=== PATIENT | male | born 1935 | race Caucasian/White ===

== ENCOUNTER → 2016-09-12 | Outpatient (CLI) | payer MEDICARE, BC | LOC: GMAJ 10:40 | PROVIDERS: ATTEND Family Medicine | DX: N40.1 Benign prostatic hyperplasia with lower urinary tract symptoms (principal) ==

== ENCOUNTER → 2016-09-20 | Outpatient (CLI) | payer MEDICARE, BC ==
--- NOTE | 2016-09-26 00:32 | US ---
EXAM DESCRIPTION: Abdomen, complete CLINICAL HISTORY: 81 years Male, ABD PAIN COMPARISON: September 17, 2009 TECHNIQUE: Grayscale imaging of the entire abdomen was performed. Static images were saved to the patient's medical record. FINDINGS: Gallbladder is visualized. No evidence of echogenic stone. The liver measures 14.2 cm in diameter. No evidence of mass or intrahepatic biliary duct dilatation. The common bile duct measures 5 mm in diameter. Bilateral kidneys demonstrate no evidence of mass or obstruction. Small bilateral single exophytic renal cyst noted. The abdominal aorta tapers normally. The spleen is unremarkable. The pancreas is unremarkable. IMPRESSION: Today's exam demonstrates no findings to account for patient's abdominal pain. The gallbladder is unremarkable. No evidence of hydronephrosis. Electronically signed by: Angel King MD 09/20/2016 3:00 PM DIRECTOR OF MARKETING COMMUNICATIONS
== END | disposition home or self-care (01) ==
LOC: US 07:52
PROVIDERS: ATTEND Family Medicine
DX: R10.11 Right upper quadrant pain (principal)

== ENCOUNTER 2017-01-03 06:59 | Inpatient (IN) | payer MEDICARE, BC ==
[2017-01-03] MEDS ORDERED: SODIUM CHLORIDE 0.9% 1000ML 1,000 ML IVS ONE (07:19)
[2017-01-03] MEDS ORDERED: KETOROLAC TROMETHAMINE INJ 30 MG/ML VIAL IV ONE (07:19)
[2017-01-03] MEDS ORDERED: ONDANSETRON ODT 8 MG TAB SL SCH (07:30)
--- NOTE | 2017-01-03 07:42 | RAD ---
Chest and abdomen three views total INDICATION: Abdominal and testicular pain acute IMPRESSION: Normal heart size. There are multiple nonacute-appearing posterior right rib fractures mostly healed. No pleural effusion or pneumothorax. Minimal elevation right hemidiaphragm. No subdiaphragmatic free air. No acute chest process. The abdominal bowel gas pattern is unremarkable. No evidence of obstruction. Slightly prominent stool in the right colon. Mild degenerative changes lumbar spine. Electronically signed by: Prashant Dumont MD 01/03/2017 7:43 AM CDT
[2017-01-03] MEDS ORDERED: CIPROFLOXACIN 500 MG TAB PO ONE (08:06)
--- NOTE | 2017-01-03 08:59 | US ---
EXAM DESCRIPTION: Testicular CLINICAL HISTORY: 81 years,Male,left testicle and abd pain 12 hours COMPARISON: None TECHNIQUE: Multiple sonographic images were obtained of the scrotum with duplex Doppler of the testicles. FINDINGS: Right testicle demonstrates normal echotexture. No masses, cysts, or calcifications. Left testicle demonstrates normal echotexture. No masses, cysts, or calcifications. Right epididymis is is slightly enlarged at the head with multiple small cysts. The head is 2 x 1 cmThe left epididymis is thickened, heterogenous, as multiple near cystic areas in the head. The head is 2.2 x 1.8 cm. And the body is at least 1.2 cm in thickness. And a small amount of extratesticular fluid on the left with thin septations. The right testicle was 4.7 cm in length by 2.7 x 2.3cm. The left testicle is 4.8 cm in length by 3.3 x 3.9cm. Both testicles demonstrate normal arterial and venous waveforms. IMPRESSION: Left epididymis is rather enlarged and thickened with small amount of extratesticular fluid consistent with epididymitis. And a few spermatoceles/epididymal head cyst in the right Electronically signed by: Ricci Bray MD 01/03/2017 8:59 AM CDT
--- NOTE | 2017-01-03 10:23 | CT ---
EXAM DESCRIPTION: Abdoment/Pelvis w/o Contrast CLINICAL HISTORY: abd pain and left testicle pain COMPARISON: Testicular ultrasound from the same day. TECHNIQUE: CT of the abdomen and pelvis was performed without contrast. Multiple axial images and multiplanar reconstructions were generated. This exam was performed according to our department minimal dose optimization program which includes automated exposure control, adjustment of mA and/or kV according to patient size and/or use of iterative reconstructed techniques. FINDINGS: Lung bases are without acute findings. Degenerative change within the lumbar spine from L3-4 through L5-S1. The noncontrasted spleen, pancreas, liver, gallbladder, bilateral adrenal glands are unremarkable. Exophytic left midpole cyst. The left kidney is otherwise unremarkable. The right lower pole renal stone measures 5.6 mm. No evidence of obstruction. Urinary bladder is unremarkable. The prostate is enlarged measuring 5.2 cm. There is edema within the region of the left testicle. The abdominal aorta is not aneurysmal. Small bowel is unremarkable. Diverticulosis of the colon noted. IMPRESSION: 1. Please refer to the ultrasound report from the same day regarding the findings of epididymitis. 2. 5.6 mm right lower pole renal stone noted. Evidence of obstruction. 3. Diverticulosis of the colon noted. 4. Degenerative change of lower lumbar spine. Electronically signed by: Angel King MD 01/03/2017 10:23 AM CDT
[2017-01-03] MEDS ORDERED: cefTRIAXone SODIUM 1 GM in SODIUM CHL 0.9% 50ML MIN-BAG+ 50 ML IVPB ONE (10:50)
[2017-01-03] MEDS ORDERED: cefTRIAXone SODIUM 1 GM VIAL ONE ×2 (11:01→19:35)
[2017-01-03] MEDS ORDERED: SODIUM CHL 0.9% 50ML MIN-BAG+ 50 ML IVPB ONE ×2 (11:01→19:35)
--- NOTE | 2017-01-03 11:04 | ED.PDOC ---
History of Present Illness - General Chief Complaint: Problem Stated Complaint: left testicular pain radiating to abdomen Time Seen by Provider: 01/03/17 07:19 Source: patient Exam Limitations: no limitations - History of Present Illness Initial Comments: The patient is a 81-year-old male presenting to the emergency room secondary to abdominal and inguinal pain down to the testicle on the left starting early last night. Pain is very severe. He does have some nausea. He is having urinary frequency and dysuria. He has exquisite tenderness to palpation of the left testicle and spermatic cord. He does have some mild guarding on palpation of the left lower quadrant. Questionable fevers at home. He is feeling weak. He does appear to be in significant distres. Timing/Duration: 24 hours Severity: severe Improving Factors: nothing Worsening Factors: movement Associated Symptoms: loss of appetite, malaise, nausea/vomiting, weakness Allergies/Adverse Reactions: Allergies NO KNOWN ALLERGY Allergy (Verified 01/03/17 07:14) Review of Systems - Review of Systems Constitutional: States: fever, malaise, weakness EENTM: States: no symptoms reported Respiratory: States: no symptoms reported Cardiology: States: no symptoms reported Gastrointestinal/Abdominal: States: abdominal pain, nausea Genitourinary: States: dysuria, frequency, pain Musculoskeletal: States: no symptoms reported Skin: States: no symptoms reported Neurological: States: no symptoms reported Endocrine: States: no symptoms reported All other Systems: No Change from Baseline Past Medical History (General) - Patient Medical History Hx Seizures: No Hx Stroke: No Hx of COPD: No Hx Cardiac Disorders: No Hx Pacemaker: No Hx Hypertension: Yes Hx Diabetes: No Hx Renal Disease: No - kidney stones Hx MRSA: Yes - Buttock 2008 MRSA Source:: Wound Surgical History: no surgical history Family Medical History - Family History Mother Family History: Unknown Physical Exam - Physical Exam General Appearance: Alert, Obvious distress Eye Exam: bilateral normal Ears, Nose, Throat: hearing grossly normal, normal ENT inspection, normal pharynx Neck: non-tender, full range of motion, supple Respiratory: chest non-tender, lungs clear, normal breath sounds, no respiratory distress, no accessory muscle use Cardiovascular/Chest: normal peripheral pulses, regular rate, rhythm, no edema Peripheral Pulses: radial,right: 2+, radial,left: 2+, dorsalis pedis,right: 2+, dorsalis pedis,left: 2+, posterior tibialis,right: 2+, posterior tibialis,left: 2+ Gastrointestinal/Abdominal: non tender, soft Rectal Exam: deferred, other - testicular exam shows mild swelling of the left testicle and significant tenderness to palpation along with tenderness of the spermatic cord Back Exam: normal inspection, no CVA tenderness, no vertebral tenderness Extremity: normal range of motion, non-tender, normal inspection, no pedal edema , normal capillary refill Neurologic: alert, normal mood/affect, oriented x 3 Skin Exam: normal color Comments: Vital Signs - 24 hr 01/03/17 07:10 Temperature 99.9 F H Pulse Rate [ 66 apical] Respiratory 20 Rate Blood Pressure 160/80 [right brachial ] O2 Sat by Pulse 95 Oximetry Progress - Progress Progress: 01/03/17 11:06 the patient is a 81-year-old male with significant left-sided epididymitis and a urinary tract infection with severe associated pain. The patient will be admitted for IV antibiotic therapy given the severity of his symptoms. Blood culture has been performed. There is some concern for septicemia with this patient. Monitor closely. IV pain medications have been required So far. Rocephin and ciprofloxacin have been given here in the emergency room. - Results/Orders Results/Orders: Laboratory Tests 01/03/17 01/03/17 01/03/17 07:15 07:20 07:20 WBC 13.2 H RBC 4.56 L Hgb 13.9 L Hct 41.6 L MCV 91.2 MCH 30.4 MCHC 33.4 RDW 13.3 Plt Count 155 MPV 8.8 Absolute Neuts (auto) 11.50 H Absolute Lymphs (auto) 0.70 L Absolute Monos (auto) 1.00 H Absolute Eos (auto) 0.00 Absolute Basos (auto) 0.10 Neutrophils % 86.7 H Lymphocytes % 5.3 L Monocytes % 7.4 Eosinophils % 0.0 L Basophils % 0.6 PT INR PTT (SP) D-Dimer, Quantitative Sodium 135 Potassium 4.4 Chloride 102 Carbon Dioxide 26 Anion Gap 11.4 L BUN 22 H Creatinine 1.40 H BUN/Creatinine Ratio 15.7 Random Glucose 140 H Serum Osmolality 275.7 Lactic Acid Calcium 8.7 Total Bilirubin 1.7 H AST 37 ALT 23 Alkaline Phosphatase 47 Creatine Kinase 27 L CK-MB (CK-2) 0.4 CK-MB (CK-2) % Not Reportable Troponin I < 0.02 B-Natriuretic Peptide 159.0 H Serum Total Protein 6.8 Albumin 3.7 Globulin 3.1 Albumin/Globulin Ratio 1.2 Amylase 64 Lipase 20 L Urine Color Yellow Urine Appearance Sl cloudy Urine pH 6.0 Ur Specific Brooks 1.020 Urine Protein 30 Urine Glucose (UA) Negative Urine Ketones Trace Urine Blood Negative Urine Nitrite Positive H Urine Bilirubin Negative Urine Urobilinogen 1.0 Ur Leukocyte Esterase Small H Urine RBC 0 Urine WBC >50 H Ur Epithelial Cells 1-3 Urine Bacteria 4+ H 01/03/17 01/03/17 07:20 07:40 WBC RBC Hgb Hct MCV MCH MCHC RDW Plt Count MPV Absolute Neuts (auto) Absolute Lymphs (auto) Absolute Monos (auto) Absolute Eos (auto) Absolute Basos (auto) Neutrophils % Lymphocytes % Monocytes % Eosinophils % Basophils % PT 12.5 INR 1.110 PTT (SP) 27.6 D-Dimer, Quantitative 282 H* Sodium Potassium Chloride Carbon Dioxide Anion Gap BUN Creatinine BUN/Creatinine Ratio Random Glucose Serum Osmolality Lactic Acid 1.0 Calcium Total Bilirubin AST ALT Alkaline Phosphatase Creatine Kinase CK-MB (CK-2) CK-MB (CK-2) % Troponin I B-Natriuretic Peptide Serum Total Protein Albumin Globulin Albumin/Globulin Ratio Amylase Lipase Urine Color Urine Appearance Urine pH Ur Specific Brooks Urine Protein Urine Glucose (UA) Urine Ketones Urine Blood Urine Nitrite Urine Bilirubin Urine Urobilinogen Ur Leukocyte Esterase Urine RBC Urine WBC Ur Epithelial Cells Urine Bacteria urine and blood cultures are pending. Ultrasound of the left testicle shows epididymitis. Normal blood flow. CT scan of the abdomen and pelvis shows no other acute pathology. Departure - Departure Clinical Impression: Epididymitis, Cystitis, Uncontrolled pain Disposition: Admit Patient Condition: Fair Departure Forms: ED Discharge - Pt. Copy, Patient Portal Self Enrollment Instructions: DI for Abdominal Pain-Adult Referrals: Perez Madrigal MD [Primary Care Provider] - 1-2 Weeks Decision To Admit - Decistion To Admit Decision to Admit Reason: Medical Nature Decision to Admit Date: 01/03/17 Decision to Admit Time: 11:08
--- NOTE | 2017-01-03 13:43 | HP ---
SUPERVISING PHYSICIAN: Perez Madrigal M.D. CHIEF COMPLAINT: Abdominal pain and left testicular pain. HISTORY OF PRESENT ILLNESS: This is a 81 year-old male patient who had some left testicular pain that started at about 8:00 the night prior to his admission. He also had some diffuse abdominal pain. About a month ago, he saw Dr. Madrigal in clinic and he had had some acid reflux. Dr. Madrigal gave him some Protonix and he has had no problems with his abdominal pain since that time. He did have some diffuse abdominal pain but he said it was somewhat different than what he saw Dr. Madrigal for a month ago. He also thinks that he may have had a urinary tract infection for about a week or so, but he had not gone in to see about it. In the Emergency Room, his electrolytes were basically within normal limits but his BUN was 22 and creatinine was 1.4. Glucose 140. Lactic acid was 1, bilirubin was a little high at 1.7. BNP was 159. WBCs were 13.2 with a left shift and hemoglobin was 13.9 and hematocrit 41.6. His urine showed positive nitrites, small amount of leukocyte esterase and greater than 50 WBCs and urine bacteria was 4+. Chest and abdominal x-ray showed normal heart size with no pleural effusion or pneumothorax. The abdominal bowel gas pattern was unremarkable with slightly prominent stool in the right colon. Abdominal/pelvic CT per radiology interpretation showed a 5.6 mm right lower pole renal stone that was noted with evidence of obstruction as well as diverticulitis of the colon and degenerative changes of the lumbar spine. His testicular ultrasound showed left epididymis is rather enlarged and thickened with small amount of extratesticular fluid consistent with epididymitis. The right testicle demonstrated normal echotexture. I was called for admission to the hospital. PAST MEDICAL HISTORY: 1. Benign prostatic hypertrophy. 2. Gastroesophageal reflux disease. 3. Hyperlipidemia. 4. Hypertension. 5. Colonic polyps. 6. Degenerative disc disease. PAST SURGICAL HISTORY: 1. Cyst removal from his neck. CURRENT MEDICATIONS: ALLERGIES: NO KNOWN DRUG ALLERGIES. FAMILY HISTORY: Father from congestive heart failure. Mother from an unspecified cancer. SOCIAL HISTORY: He is retired. He is . He has 3 children. He quit smoking and quit using smokeless tobacco in 1998. He denies any ETOH or illicit drug use. CODE STATUS: DO NOT RESUSCITATE. REVIEW OF SYSTEMS: Negative except as per the history of present illness. PHYSICAL EXAMINATION: VITAL SIGNS: Temperature 100.2, heart rate 60, blood pressure 165/66, respiratory rate 18, O2 sat 94% on room air. GENERAL: This is a 81 year-old male patient who is lying in his hospital bed. He is in no acute distress. HEENT: Normocephalic and atraumatic. Pupils are equal and reactive. Oropharynx is clear. He has poor dentition. NECK: Supple without mass. CHEST: Clear to auscultation bilaterally. There is equal rise and fall of the chest with inspiration and expiration. CARDIOVASCULAR: Regular rate and rhythm. ABDOMEN: Soft, nondistended. Mildly tender diffusely. There is no rebound tenderness or guarding. He is slightly more tender in the suprapubic area. GENITOURINARY: The left testicle is slightly more edematous than the right. There is tenderness with palpation to the testicle itself as well as the spermatic cord. EXTREMITIES: No cyanosis, clubbing or edema. NEUROLOGIC: He is awake, alert and oriented times three. LABORATORY: Labs and films are as per the History of Present Illness. ASSESSMENT: 1. Epididymitis of the left testicle. 2. Urinary tract infection. 3. 5.6 non obstructing renal stone. 4. Leukocytosis with a left shift most likely secondary to number 1 number 2. 5. Renal insufficiency with creatinine of 1.4. 6. Constipation. 7. Abdominal pain. 8. Hypertension. 9. Gastroesophageal reflux disease. 10. Benign prostatic hypertrophy. 11. Hyperlipidemia. 12. Degenerative disc disease. PLAN: We will admit the patient to the hospital. He has received some fluids in the Emergency Room as well as a gram of Rocephin. I will continue the Rocephin every 12 hours. I have added Protonix for ulcer prophylaxis as well as Lovenox for DVT prophylaxis. We will need to elevated his testicles as well as give him comfort measures such as ice or warm moist compresses, whichever the patient prefers. He will need a referral to Urology for the epididymitis as well as a workup for the renal stone. I will also give him pain medications. I will hold off on any NSAIDs due to his renal insufficiency. I have repeated his lab for in the morning. Will monitor his cultures as they become available. Dr. Madrigal is the collaborating physician available for consultation. #[id number] [facility] HEALTHMyriam
[2017-01-03] MEDS ORDERED: SODIUM CHLORIDE 0.9% (FLUSH) 10 ML SYG IV PRN (16:25)
[2017-01-03] MEDS ORDERED: ENOXAPARIN SODIUM 40 MG/0.4 ML SYG SUBCU SCH (16:30)
[2017-01-03] MEDS ORDERED: IV SET AND CAP CHANGE INJ INJ SCH (16:30)
--- NOTE | 2017-01-03 16:37 | PCM.CORE ---
Physician DVT/VTE - Prophylaxis Currently: Patient already on anticoagulation therapy - Nurse DVT Assessment & Total Each Risk Factor Represents 3 Points: Age over 75 years Each Risk Factor Represents 2 Points: Age 60-74 DVT Assessment Score: 5 - 5 or more Very High Risk Treatments: Early Ambulation *, Sequential Compression Device
[2017-01-03] MEDS: PANTOPRAZOLE SODIUM IV 40 MG VIAL IV SCH (16:58)
[2017-01-03] MEDS: cefTRIAXone SODIUM 1 GM in SODIUM CHL 0.9% 50ML MIN-BAG+ 50 ML IVPB SCH (23:54)
[2017-01-04] MEDS ORDERED: SODIUM CHL 0.9% 50ML MIN-BAG+ 50 ML IVPB ONE ×2 (07:01→20:31)
[2017-01-04] MEDS ORDERED: PRAVASTATIN SODIUM 20 MG TAB ONE (07:01)
[2017-01-04] MEDS ORDERED: ENOXAPARIN SODIUM 40 MG/0.4 ML SYG SUBCU ONE (07:02)
[2017-01-04] MEDS ORDERED: cefTRIAXone SODIUM 1 GM VIAL ONE ×2 (07:02→20:32)
[2017-01-04] MEDS: HYDROcodone 5MG/APAP 325MG 1 EA TAB PO PRN ×2 (08:00→17:16)
[2017-01-04] MEDS: FINASTERIDE 5 MG TAB PO SCH (08:39)
[2017-01-04] MEDS: METOPROLOL SUCCINATE XL 25 MG TAB PO SCH (08:39)
[2017-01-04] MEDS: SODIUM CHLORIDE 0.9% (FLUSH) 10 ML SYG IV SCH ×2 (08:49→20:39)
[2017-01-04] MEDS: cefTRIAXone SODIUM 1 GM in SODIUM CHL 0.9% 50ML MIN-BAG+ 50 ML IVPB SCH ×2 (11:02→22:31)
--- NOTE | 2017-01-04 13:11 | PN ---
SUPERVISING PHYSICIAN: David Dale MD DATE: 01/04/17 SUBJECTIVE: The patient is sitting up in his hospital bed watching television. His is at the bedside. He has no complaints of shortness of breath, nausea, vomiting, diarrhea or abdominal pain. He said he has had very little scrotal pain overnight. He did have a headache overnight, but received some Tylenol for that and that improved. He did say he had ice on his testicles several times overnight and that did help. OBJECTIVE: VITAL SIGNS: T-max 24 hours 100.4. Pulse 66. Blood pressure 131/ 63. Respiratory rate 18. O2 saturation 93% on room air. LUNGS: Clear to auscultation bilaterally. CARDIAC: Regular rate and rhythm. ABDOMEN: Soft, nontender, nondistended. Bowel sounds are positive. EXTREMITIES: No cyanosis, clubbing or edema. GENITOURINARY: Left testicle is slightly edematous, but much less than yesterday. NEUROLOGIC: Awake, alert and oriented times three. LABORATORY: WBC slightly improved to 10.4, but neutrophils still elevated at 82.2. Hemoglobin 11.8, hematocrit 35.4. Electrolytes are basically within normal limits. BUN 28, creatinine improved to 1.30. Calcium 8. Preliminary urine culture shows gram negative rods. All other labs and films have been reviewed via the EMR. ASSESSMENT: 1. Epididymitis of the left testicle. 2. Urinary tract infection. 3. 5.6 non obstructing renal stone. 4. Leukocytosis with a left shift most likely secondary to number 1 number 2. 5. Renal insufficiency with creatinine of 1.4. 6. Constipation. 7. Abdominal pain. 8. Hypertension. 9. Gastroesophageal reflux disease. 10. Benign prostatic hypertrophy. 11. Hyperlipidemia. 12. Degenerative disc disease. PLAN: We will continue present supportive care. He will continue on his Rocephin antibiotics until his urine culture is available tomorrow at which time he will be discharged on the appropriate antibiotics. He is much better today. There is minimal swelling to the left testicle as it has improved since yesterday. I will repeat a CBC and CMP in the morning. He will need a followup with Dr. Madrigal on discharge as well as may need a Urology consultation due to the epididymitis as well as the kidney stone. We will continue to monitor the patient closely and followup as needed. #[id number] and [id number] [facility]
[2017-01-04] MEDS: PANTOPRAZOLE SODIUM IV 40 MG VIAL IV SCH (16:10)
[2017-01-04] MEDS: ONDANSETRON INJ 4 MG/2 ML VIAL IV PRN (17:16)
[2017-01-04] MEDS ORDERED: PRAVASTATIN SODIUM 20 MG TAB PO SCH (21:00)
[2017-01-04] MEDS ORDERED: ENOXAPARIN SODIUM 40 MG/0.4 ML SYG SUBCU SCH (21:00)
[2017-01-05] MEDS ORDERED: ACETAMINOPHEN 325 MG TAB PO PRN (01:27)
[2017-01-05] MEDS ORDERED: SODIUM CHL 0.9% 50ML MIN-BAG+ 0 ML IVPB ONE (07:23)
[2017-01-05] MEDS ORDERED: cefTRIAXone SODIUM 1 GM VIAL ONE (07:24)
[2017-01-05] MEDS: ONDANSETRON INJ 4 MG/2 ML VIAL IV PRN (07:36)
[2017-01-05] MEDS: FINASTERIDE 5 MG TAB PO SCH (09:18)
[2017-01-05] MEDS: SODIUM CHLORIDE 0.9% (FLUSH) 10 ML SYG IV SCH (09:18)
[2017-01-05] MEDS: METOPROLOL SUCCINATE XL 25 MG TAB PO SCH (09:18)
[2017-01-05 09:47] VITALS: BP 138/75; TEMP 99.8; O2SAT 91
--- NOTE | 2017-01-09 08:10 | DS ---
SUPERVISING PHYSICIAN: Perez Madrigal MD DISCHARGE DIAGNOSIS: 1. Epididymitis of the left testicle. 2. Urinary tract infection with final culture results showing youssef sensitive Escherichia 3. Leukocytosis with a left shift most likely secondary to #1 and #2. 4. Renal insufficiency with creatinine of 1.4, improved after IV fluids. 5. Constipation. 6. Abdominal pain, secondary to #1 and #2 as well as #5. 7. Hypertension. 8. Gastroesophageal reflux disease. 9. Benign prostatic hypertrophy. 10. Hyperlipidemia. 11. Degenerative disc disease. 12. Nonobstructing 5.6 mm renal stone. HISTORY OF PRESENT ILLNESS: Mr. Aguiar is a 81-year-old male patient who had some left testicular pain that started at about 8:00 the night prior to his admission. He also had some diffuse abdominal pain. About a month ago, he saw Dr. Madrigal in clinic and he had had some acid reflux. Dr. Madrigal gave him some Protonix and he has had no problems with his abdominal pain since that time. He did have some diffuse abdominal pain, but he said it was somewhat different than what he saw Dr. Madrigal for a month previous. He also thinks that he may have had a urinary tract infection for about a week or so, but he had not gone in to see about it. In the Emergency Room, his electrolytes were basically within normal limits, but his BUN was 22 and creatinine was 1.4. Lactic acid was 1. White count was slightly elevated at 13.2 with a left shift. His initial urinalysis showed positive nitrites, small amount of leukocyte esterase and greater than 50 WBCs and urine bacteria was 4+. Chest and abdominal x-ray showed normal heart size with no pleural effusion or pneumothorax. The abdominal bowel gas pattern was unremarkable with slightly prominent stool in the right colon. Abdominopelvic CT per radiology interpretation showed a 5.6 mm right lower pole renal stone that was noted without evidence of obstruction as well as diverticulitis of the colon and degenerative changes of the lumbar spine. His testicular ultrasound showed left epididymis is rather enlarged and thickened with small amount of extratesticular fluid consistent with epididymitis. The right testicle demonstrated normal echotexture. He was then admitted to the Medical/Surgical Floor for continuation and initiation of antibiotic therapy. LABORATORY: CBC on admission showed leukocytosis of 13.2 with hemoglobin 13.9, hematocrit 41.6, platelet count 155,000. Differential did show a left shift. He was initiated on antibiotic therapy and continued. At discharge, his white count had normalized to 6.5, hemoglobin stabilized at 11.4, hematocrit 34.1 with a left shift continued, although showing improvement. Coagulation studies showed PT 12.5, INR 1.1, PT-T 27.6. D-dimer 282. Chemistries on admission showed normal electrolytes as well as discharge. Initial BUN was 22. At discharge, it as 20. Creatinine was initially 1.4, after IV fluids at discharge it was 1.28. Liver functions initially showed just a slightly elevated bilirubin of 1.7, however, this resolved after treatment and was normalized at discharge. He had troponin that was less than 0.04. Urinalysis showed positive nitrites with small amount of leukocyte esterase with microscopic revealing 0 RBCs, greater than 50 WBCs with 1 to 3 epithelials, 4+ bacteria. MICROBIOLOGY: He had two sets of blood cultures that remained negative after four days. MRSA surveillance culture showed no growth after 72 hours. Final urine culture was youssef sensitive showing Escherichia coli. RADIOLOGY: Abdominal x-ray in the Emergency Department per radiologic interpretation there was note of multiple nonacute appearing rib fractures, most likely healed. No pleural effusions or pneumoperitoneum. There was no acute chest process noted. Bowel gas pattern was unremarkable with no evidence of obstruction, slightly prominent stool in the right colon with mild degenerative changes noted within the lumbar spine. A testicular ultrasound prior to admission per radiologic interpretation showed findings of the left testicle consistent with epididymitis and the right being within normal limits. Please see that report for full details. He also had abdominopelvic CT without contrast and per radiologic interpretation, there was note of a 5.6 mm lower pole renal stone without evidence of obstruction. Also of note was diverticulosis and lumbar spine degenerative changes. Please see that report for full details. HOSPITAL COURSE: Mr. Aguiar was admitted as noted in the history of present illness with a urinary tract infection and acute epididymitis. He was initiated on antibiotics to include Rocephin. He was provided pain control and nausea medicine as needed. He clinically improved with IV fluids and antibiotic therapy and was felt well enough clinically to be discharged on date of discharge to have continued followup with primary care physician and urology. PLAN: The patient was discharged on 01/05/17 with instructions to have close clinical followup with Dr. Madrigal as scheduled on 01/12/17 at 1500. He was to resume his home medications as instructed and to start taking new prescriptions as directed. When possible, apply cold packs to the groin to decrease inflammation and use ibuprofen for pain control if not relieved with Tylenol No. 3. He was instructed to return to the hospital should he have no improvement in his symptoms or any other concerning symptoms. At discharge, antibiotic therapy was continued with Levaquin 500 mg, #10, and he was given codeine No. 3 300 mg/30 mg 1 tablet q.4h., #15, for pain control if not controlled by Aleve. DIET AT DISCHARGE: Resume regular diet. ACTIVITY: As tolerated. CONDITION AT DISCHARGE: Stable and improved. #[id number] [facility]
== END 2017-01-05 10:20 | disposition home or self-care (01) | DRG 728 ==
LOC: ER 06:59 → MS 13:00
PROVIDERS: ADMIT Nurse Practitioner Acute Care; ATTEND Nurse Practitioner Family
DX: N45.1 Epididymitis (principal); N39.0 Urinary tract infection, site not specified; K57.32 Diverticulitis of large intestine without perforation or abscess without bleeding; N20.0 Calculus of kidney; N28.9 Disorder of kidney and ureter, unspecified; K59.00 Constipation, unspecified; I10 Essential (primary) hypertension; K21.9 Gastro-esophageal reflux disease without esophagitis; N40.0 Benign prostatic hyperplasia without lower urinary tract symptoms; E78.5 Hyperlipidemia, unspecified; Z66 Do not resuscitate; M51.36 Other intervertebral disc degeneration, lumbar region; B96.20 Unspecified Escherichia coli [E. coli] as the cause of diseases classified elsewhere; Z87.891 Personal history of nicotine dependence; Z86.14 Personal history of Methicillin resistant Staphylococcus aureus infection

== ENCOUNTER → 2017-01-11 | Outpatient (CLI) | payer MEDICARE, BC | LOC: LAB.O 14:00 | PROVIDERS: ATTEND Urology | DX: N45.2 Orchitis (principal) ==

== ENCOUNTER → 2017-05-02 | Outpatient (CLI) | payer MEDICARE, BC | END | disposition home or self-care (01) | LOC: GMAJ 10:44 | PROVIDERS: ATTEND Family Medicine | DX: N40.1 Benign prostatic hyperplasia with lower urinary tract symptoms (principal) ==

== ENCOUNTER → 2017-09-07 | Outpatient (CLI) | payer MEDICARE, BC | LOC: GMAJ 10:16 | PROVIDERS: ATTEND Family Medicine | DX: N40.1 Benign prostatic hyperplasia with lower urinary tract symptoms (principal) ==

== ENCOUNTER → 2017-10-17 | Outpatient (CLI) | payer MEDICARE, BC ==
--- NOTE | 2017-10-18 00:03 | US ---
Procedure: US CAROTID DOPPLER BILATERAL Exam Date: 10/17/2017 Ordering Provider: WANDER TOLBERT Clinical Indication: OCCLUSION AND STENOSIS OF BILAT CAROTID Comparison: None TECHNIQUE : Real-time cerebrovascular ultrasonography was obtained from sternal notch to the angle of the mandible bilaterally utilizing montano scale, color flow and spectral Doppler analysis. Systolic velocity ratios were calculated for internal carotid artery to common carotid artery bilaterally. FINDINGS: RIGHT CAROTID BIFURCATION: Mild atherosclerotic plaque. Peak systolic and end-diastolic velocities in the right internal carotid artery are 59 and 24 cm/s. Internal carotid/common carotid ratio is 1.2. Right vertebral flow is antegrade. LEFT CAROTID BIFURCATION: Mild atherosclerotic plaque. Peak systolic and end-diastolic velocities in the left internal carotid artery are 61 and 18 cm/s. Internal carotid/common carotid ratio is 1.1. Left vertebral flow is antegrade. IMPRESSION: 1. Mild atherosclerotic plaque in each carotid bulb and ICA origin. 2. There is no significant stenosis (less than 50%) at either ICA origin. 3. Bilateral antegrade vertebral artery flow. Electronically signed by: Ambrocio Cade MD 10/18/2017 12:01 AM CDT
== END ==
LOC: US 11:00
PROVIDERS: ATTEND Family Medicine
DX: I65.23 Occlusion and stenosis of bilateral carotid arteries (principal)

== ENCOUNTER → 2018-01-15 | Outpatient (CLI) | payer MEDICARE, BC ==
--- NOTE | 2018-01-15 10:04 | MRI ---
MRI right elbow without contrast INDICATION: Elbow mass TECHNIQUE: Noncontrast MR imaging right elbow FINDINGS: There is advanced osteoarthrosis throughout the right elbow with diffuse grade 4 chondrosis subchondral cysts marginal osteophytes and joint space narrowing. Chronic appearing partial tear common extensor tendon and chronic/remote partial tear radial collateral ligament complex. Small ossicle/previous avulsion distal ulnar collateral ligament at the sublime tubercle. Intact common flexor. Heterogeneous synovitis ossification and probable body at the tip of the coronoid process with cystic change and edema. Large volume joint fluid and synovitis/debris. Distal tricep is intact. Minimal tendinosis distal bicep without rupture or retraction. Cubital tunnel is intact with unremarkable ulnar nerve. There is a heterogeneous fluid signal intensity multiloculated superficial mass in the area of the olecranon bursa extending distally along the superficial aspect of the posterior elbow and forearm. This is most likely an unusual ganglion which is atypical in this location. A vascular malformation is less likely as no flow voids are noted. This is subcutaneous in location superficial to the myocutaneous fascia. Hemangioma is a consideration although again no flow voids are noted. Correlate with skin discoloration and fluctuance. No bone destruction. This lesion has a relatively nonaggressive appearance IMPRESSION: Cystic or less likely vascular multiloculated lesion extending from the olecranon bursal area distally along the posterior forearm possibly complicated ganglion lymphangioma or hemangioma less likely. 5.6 cm wide by 1.5 cm thick by 5 cm craniocaudal axis. Severe osteoarthrosis of the elbow Previous partial tears of the common extensor and radial collateral complex. Electronically signed by: Prashant Dumont MD 01/15/2018 10:03 AM CDT
== END ==
LOC: MRI 08:00
PROVIDERS: ATTEND Orthopaedic Surgery
DX: M25.821 Other specified joint disorders, right elbow (principal)

== ENCOUNTER → 2018-01-19 | Outpatient (CLI) | payer MEDICARE | LOC: RESP 08:29 | PROVIDERS: ATTEND Orthopaedic Surgery | DX: Z01.818 Encounter for other preprocedural examination (principal) ==

== ENCOUNTER 2018-02-20 05:47 | Day surgery (SDC) | payer MEDICARE ==
--- NOTE | 2018-02-19 10:57 | HP ---
CHIEF COMPLAINT: Right elbow mass. HISTORY OF PRESENT ILLNESS: Mr. Aguiar is an 83-year-old male with a history of a mass on the elbow. MRI indicated that it appears to be lipomatous in origin. He denies any trauma related to this, denies any neurologic symptoms and most of his symptoms seem to arise from having either local irritation when he puts it down, but also from a cosmetic standpoint. Because of his symptoms, he has requested operative intervention. After discussing the risks, benefits and alternatives to that, the patient has given informed consent. PAST SURGICAL HISTORY: None. MEDICATIONS: 1. Finasteride. 2. Metoprolol. 3. Pravastatin. ALLERGIES: NO KNOWN DRUG ALLERGIES. CODE STATUS: Full code. IMMUNIZATIONS: Up to date. FAMILY HISTORY: None pertinent to today's complaint. SOCIAL HISTORY: The patient does not drink, smoke or use any illicit drugs. REVIEW OF SYSTEMS: Negative except as indicated in the History of Present Illness. PHYSICAL EXAMINATION: VITAL SIGNS: Blood pressure 167/84. Pulse 53. Height 5'7". Weight 164 pounds. MENTAL STATUS: The patient is awake, alert, and is able to give a good history and participate in the physical. The patient is oriented to person, place and time. SKIN: Normal tone and turgor. MUSCULOSKELETAL: He has slightly firm swelling on the posteromedial aspect of the elbow. The skin overlying it does seem to be mobile. There is no significant erythema or crepitus with palpation. The arm is warm and well perfused. He has full range of motion in the elbow and full glass washer strength. ASSESSMENT: 1. Benign mass of the elbow. PLAN: The plan at this point is for excision of the mass. We have discussed the risks, benefits, and alternatives to that and the patient has given informed consent. #[id number] [facility]
[2018-02-20] MEDS ORDERED: LACTATED RINGERS 1,000 ML ONE (06:01)
[2018-02-20] MEDS ORDERED: SODIUM CHL 0.9% 100ML MINI-BAG 100 ML IVPB ONE (06:01)
[2018-02-20] MEDS ORDERED: ceFAZolin SODIUM 1 GM VIAL ONE (06:02)
[2018-02-20] MEDS ORDERED: MIDAZOLAM INJ 2 MG/2 ML VIAL ONE (08:13)
[2018-02-20] MEDS ORDERED: fentaNYL CITRATE INJ 50 MCG/ML AMP ONE (08:13)
[2018-02-20] MEDS ORDERED: BUPIVACAINE 0.5% W/EPI 30 ML VIAL INJ ONE (08:42)
[2018-02-20] MEDS: ceFAZolin SODIUM 1 GM VIAL ONE ×2 (09:00→09:35)
[2018-02-20] MEDS: VANCOMYCIN HCL INJ 1,000 MG VIAL IVPB ONE ×2 (09:01→09:35)
[2018-02-20] MEDS ORDERED: DEXAMETHASONE INJ 10 MG/ML VIAL IV ONE (10:00)
[2018-02-20] MEDS ORDERED: GLYCOPYRROLATE 0.2 MG/ML VIAL IV ONE (10:00)
[2018-02-20] MEDS ORDERED: KETOROLAC TROMETHAMINE INJ 30 MG/ML VIAL IV ONE (10:00)
[2018-02-20] MEDS ORDERED: ePHEDrine SULF 50 MG/ML IV ONE (10:00)
[2018-02-20] MEDS ORDERED: PROPOFOL 200 MG/20 ML VIAL IV ONE (10:00)
[2018-02-20] MEDS ORDERED: LIDOCAINE 1% 10 ML VIAL INJ ONE (10:00)
[2018-02-20] MEDS ORDERED: raNITIdine HCL INJ 25 MG/ML VIAL IV ONE (10:00)
[2018-02-20 10:18] VITALS: TEMP 97.3
[2018-02-20 10:43] VITALS: BP 147/72; O2SAT 98
--- NOTE | 2018-02-21 08:19 | OP ---
DATE OF PROCEDURE: 02/20/18 PREOPERATIVE DIAGNOSIS: 1. Benign mass of the elbow. POSTOPERATIVE DIAGNOSIS: 1. Benign mass of the elbow. PROCEDURE: 1. Excision of benign mass. SURGEON: Alistair Bond MD. VELOCITY SHOOTER: Ludwin Chi CST, SA-C. ANESTHESIA: General anesthesia. COMPLICATIONS: None. FINDINGS: Benign mass of the elbow measuring approximately 4.5 x 3 cm in greatest dimension. INDICATION: Mr. Aguiar has a history of a mass on the elbow that has had minimal fluctuation in size. It has been there for a while and causes him local discomfort. Because of the discomfort, he has requested operative intervention. After discussing the risks, benefits and alternatives to that, he has given informed consent for that. PROCEDURE: The patient was brought to the Operating Room and placed in supine position. General anesthesia was induced and the patient's arm was sterilely prepped and draped. Following prepping and draping, an incision was made directly overlying the mass. Blunt dissection was used to fully expose and remove the mass. There were no invasive extensions and it appeared almost as though it was a multiloculated complex cystic mass. After removal of the mass, the wound was very thoroughly irrigated and examined to ensure complete removal of all abnormal appearing tissue. Following that, the wound was reapproximated with running and interrupted subcuticular stitches. Sterile dressings were placed. The patient was awoken from anesthesia and taken to Recovery. POSTOPERATIVE PLAN: He will followup with us in 2 days. He has been encouraged to do range of motion of the digits and wrist as well as elbow. #[id number] [facility]
== END 2018-02-20 11:30 | disposition home or self-care (01) ==
LOC: AMB 05:47
PROVIDERS: ATTEND Orthopaedic Surgery
DX: R22.31 Localized swelling, mass and lump, right upper limb (principal); I10 Essential (primary) hypertension; K21.9 Gastro-esophageal reflux disease without esophagitis; N40.0 Benign prostatic hyperplasia without lower urinary tract symptoms; E78.5 Hyperlipidemia, unspecified; G89.29 Other chronic pain; M54.5 Low back pain; Z79.82 Long term (current) use of aspirin; Z79.899 Other long term (current) drug therapy
CPT/HCPCS: 00400; 24071; J0690; J1100; J1885; J2250; J2780; J3010; J3370; J3490; J7050; J7120

== ENCOUNTER → 2018-05-29 | Outpatient (CLI) | payer MEDICARE | LOC: GMAJ 12:30 | PROVIDERS: ATTEND Family Medicine | DX: N40.1 Benign prostatic hyperplasia with lower urinary tract symptoms (principal) ==

== ENCOUNTER → 2019-06-17 | Outpatient (CLI) | payer MEDICARE | END | disposition home or self-care (01) | LOC: GMAJ 10:35 | PROVIDERS: ATTEND Family Medicine | DX: Z12.5 Encounter for screening for malignant neoplasm of prostate (principal) ==

== ENCOUNTER → 2020-05-22 | Outpatient (CLI) | payer MEDICARE | LOC: GMAJ 10:41 | PROVIDERS: ATTEND Family Medicine | DX: N40.1 Benign prostatic hyperplasia with lower urinary tract symptoms (principal); E78.00 Pure hypercholesterolemia, unspecified; I10 Essential (primary) hypertension ==